=== PATIENT | male | born 1960 ===

== ENCOUNTER 2017-03-09 09:35 | Outpatient (CLI) | payer BC ==
--- NOTE | 2017-03-10 11:00 | Cardiology Report ---
APPROVED REPORT EKG Measurement Heart [id number] ID [id number] Normal sinus rhythm Septal infarct, age undetermined Abnormal ECG
== END 2017-03-09 11:35 | disposition home or self-care (01) ==
LOC: CAR 09:35
DX: R07.9 Chest pain, unspecified (principal); R94.31 Abnormal electrocardiogram [ECG] [EKG]
CPT/HCPCS: 93005